=== PATIENT | female | born 1950 | race Caucasian/White ===

== ENCOUNTER → 2017-09-03 10:34 | Outpatient (CLI) | payer MEDICARE | END | disposition home or self-care (01) | LOC: D.MRI 10:34 | DX: R22.0 Localized swelling, mass and lump, head (principal) ==

== ENCOUNTER → 2017-09-12 20:11 | Outpatient (CLI) | payer MEDICARE | END | disposition home or self-care (01) | LOC: D.LABREF 20:11 | DX: N64.59 Other signs and symptoms in breast (principal) ==